=== PATIENT | female | born 1965 | race Caucasian/White ===

== ENCOUNTER 2023-12-29 06:57 | Day surgery (SDC) | payer MEDICAID, OTHER ==
[2023-12-29 07:28] LABS: BASOPHILS ABSOLUTE AUTO 0.03 K/uL (0.00-0.10); BASOPHILS PERCENT AUTO 0.5 % (0.1-1.3); EOSINOPHILS ABSOLUTE AUTO 0.35 K/uL (0.00-0.40); EOSINOPHILS PERCENT AUTO 6.1 % (0.0-5.4); HEMATOCRIT 41.1 % (34.3-46.0); HEMOGLOBIN 13.6 g/dL (11.2-15.5); IMMATURE GRAN ABSOLUTE AUTO 0.02 K/uL (0.00-0.23); IMMATURE GRAN PERCENT AUTO 0.3 % (0.0-0.7); LYMPHOCYTES ABSOLUTE AUTO 1.25 K/uL (0.8-3.3); LYMPHOCYTES PERCENT AUTO 21.6 % (11.4-47.7); MEAN CORPUSCULAR HEMOGLOBIN 29.7 pg (31.6-35.5); MEAN CORPUSCULAR HGB CONC 33.1 g/dL (31.6-35.5); MEAN CORPUSCULAR VOLUME 89.7 fL (81.4-99.0); MONOCYTES ABSOLUTE AUTO 0.31 K/uL (0.20-0.90); MONOCYTES PERCENT AUTO 5.4 % (3.3-12.6); NEUTROPHILS ABSOLUTE AUTO 3.82 K/uL (1.0-7.6); NEUTROPHILS PERCENT AUTO 66.1 % (40.0-78.1); PLATELET COUNT,PLT 195 K/uL (130-375); RED BLOOD CELL COUNT 4.58 M/uL (3.77-5.24); WHITE BLOOD CELL COUNT,WBC 5.8 K/uL (3.2-11.0)
[2023-12-29] MEDS ORDERED: Midazolam 1 MG/ML 2 ML SDV ONE (07:33)
[2023-12-29] MEDS ORDERED: fentaNYL 100 MCG/2 ML SDV ONE (07:33)
[2023-12-29] MEDS ORDERED: Propofol 200 MG/20 ML SDV ONE (07:33)
[2023-12-29 07:48] LABS: A/G RATIO 1.1 (1.2-2.2); ALANINE AMINOTRANSFERASE,ALT 22 U/L (12-78); ALBUMIN 3.7 g/dL (3.4-5.0); ALKALINE PHOSPHATASE 131 U/L (46-116); ANION GAP 8.1 mmol/L (5.0-14.0); ASPARTATE AMNIOTRANSFERASE,AST 16 U/L (15-37); BILIRUBIN TOTAL 0.5 mg/dL (0.2-1.0); BLOOD UREA NITROGEN,BUN 9 mg/dL (7-18); CALCIUM 9.4 mg/dL (8.5-10.1); CARBON DIOXIDE,CO2 30 mmol/L (21-32); CHLORIDE,CL 103 mmol/L (100-108); CREATININE 0.7 mg/dL (0.6-1.0); EST CRCL DRUG DOSING (CG) 88.37 mL/min; ESTIMATED GFR 100 mL/min (>60); GLUCOSE RANDOM 125 mg/dL (74-106); PROTEIN TOTAL,TP 7.2 g/dL (6.4-8.2); SODIUM,NA 141 mmol/L (140-148)
[2023-12-29] MEDS ORDERED: Ondansetron 4 MG/2 ML SDV IVPUSH PRN (07:54)
[2023-12-29] MEDS ORDERED: Docusate Sodium 100 MG Cap PO PRN (07:54)
[2023-12-29] MEDS ORDERED: Magnesium Hydroxide 400 MG/5 ML Susp 30 ML Cup PO PRN (07:54)
[2023-12-29] MEDS ORDERED: oxyCODONE 5 MG Tab PO PRN (07:54)
[2023-12-29] MEDS ORDERED: Gabapentin 300 MG Cap PO PRN (07:55)
[2023-12-29] MEDS: Nozin Nasal Sanitizer NASBOTH SCH ×2 (08:15→21:24)
[2023-12-29] MEDS: Lactated Ringers 1,000 ML IV SCH (08:39)
[2023-12-29] MEDS ORDERED: DULoxetine 30 MG Cap PO SCH (09:00)
[2023-12-29] MEDS ORDERED: BUPROPION HCL 150 MG PO SCH (09:00)
[2023-12-29] MEDS: ceFAZolin 2 GM in Premix Bag 1 BAG IV ONE (09:45)
[2023-12-29] MEDS: Tranexamic Acid 1,000 MG in Sodium Chloride 0.9% 50 ML IV ONE (10:15)
[2023-12-29] MEDS ORDERED: Rocuronium 50 MG/5 ML Vial ONE (10:16)
[2023-12-29] MEDS ORDERED: Ondansetron 4 MG/2 ML SDV ONE (10:21)
[2023-12-29] MEDS ORDERED: Neostigmine Methylsulfate 10 MG/10 ML MDV ONE (10:21)
[2023-12-29] MEDS ORDERED: Glycopyrrolate 0.2 MG/ML 5 ML MDV ONE (10:21)
[2023-12-29] MEDS ORDERED: Dexamethasone 4 MG/ML SDV ONE (10:21)
[2023-12-29] MEDS ORDERED: fentaNYL 250 MCG/5 ML SDV ONE ×2 (10:26→10:58)
[2023-12-29] MEDS ORDERED: busPIRone 10 MG Tab PO PRN (10:37)
[2023-12-29] MEDS: Bupivacaine 0.5% 50 ML MDV ONE (11:09)
[2023-12-29] MEDS: Morphine 2 MG/ML SYRINGE IVPUSH ONE (12:30)
[2023-12-29] MEDS: Ketorolac 15 MG/ML SDV IVPUSH PRN (13:16)
[2023-12-29] MEDS: oxyCODONE 5 MG Tab PO PRN (13:16)
[2023-12-29] MEDS: Acetaminophen 325 MG Tab PO SCH (13:22)
[2023-12-29] MEDS: Sodium Chloride 0.9% 1,000 ML IV SCH (15:00)
[2023-12-29] MEDS: ceFAZolin 2 GM in Premix Bag 1 BAG IV SCH (16:15)
[2023-12-29] MEDS: Morphine 2 MG/ML SYRINGE IVPUSH PRN (16:19)
[2023-12-30] MEDS: Pantoprazole 40 MG Tab.CR PO SCH (07:39)
[2023-12-30] MEDS: Levothyroxine 25 MCG Tab PO SCH (07:39)
[2023-12-30] MEDS: Losartan 50 MG Tab PO SCH (08:05)
[2023-12-30] MEDS: Fluticasone NASAL Spray 16 GM Bottle NASBOTH SCH (08:06)
[2023-12-30] MEDS: DULoxetine 30 MG Cap PO SCH (08:06)
[2023-12-30] MEDS: Aspirin 325 MG Tab.EC PO SCH (08:06)
== END 2023-12-30 15:10 | disposition home or self-care (01) ==
LOC: JP.SDS 06:57 → JP.MS 07:55 → JP.SDS 12-30 15:10
PROVIDERS: ATTEND Specialist
DX: M17.11 Unilateral primary osteoarthritis, right knee (principal); I10 Essential (primary) hypertension; K21.9 Gastro-esophageal reflux disease without esophagitis; F32.A Depression, unspecified
CPT/HCPCS: 01402; 27447; 36415; 73560; 80053; 85025; 97110; 97116; 97161; 97530; A9270; C1713; C1776; J0665; J0690; J1100; J1596; J1885; J2250; J2270; J2405; J2704; J2710; J3010; J3490; J7030; J7120